=== PATIENT | male | born 1965 | race African-American/Black ===

== ENCOUNTER → 2016-12-07 | Outpatient (CLI) | payer OTHER ==
[~2016-12-07] MED LIST: AMBIEN 10MG10 MG PO; CATAPRES 0.1MG0.1 MG PO; CODEINE/GUAIFE120 M2 PO; COLACE 100100 MG/CAP PO; CYMBALTA 30MG30 MG PO; CYMBALTA 60MG60 MG PO; FOLIC ACID 11 MG/TA1 PO; INVEGA6 MG PO; LEVAQUIN 750MG750 M1 PO; METHOTREXA2.5 MG/TAB PO; MIRALAX PA17 GM/Dose PO; PREDNISONE10 MG PO; PREDNISONE20 MG PO; SYNTHROID0.05 MG/TA PO
== END ==
LOC: COL.PUL 08:00
DX: Z02.71 Encounter for disability determination (principal)

== ENCOUNTER → 2019-06-02 | Outpatient (CLI) | payer MEDICARE ==
[2019-06-02 15:04] LABS: BASO % 0.2 % (0.0-2.0); EOS % 0.5 % (0-4.0); GRAN % 80.7 % (42.2-75.2); HEMATOCRIT 46.1 % (42.0-52.0); HEMOGLOBIN 15.6 g/dl (13.5-18.0); LYMPH # 0.8 (1.2-3.4); MEAN CELL VOLUME 96 fl (80.0-100.0); MEAN CORPUSCULAR HEMOGLOBIN 32 pg (27.0-31.0); MEAN CORPUSCULAR HGB CONC 34 g/dl (33.0-37.0); MEAN PLATELET VOLUME 9.1 fl (7.4-10.4); MONO # 0.8 (0.1-0.6); PLATELET COUNT 215 K/mm3 (130-400); RED BLOOD COUNT 4.81 M/mm3 (4.20-5.60); REDCELL DISTRIBUTION WIDTH-CV 12.3 % (11.5-14.5)
[2019-06-02 15:08] LABS: ALBUMIN 4.4 gm/dL (3.5-5.0); BILIRUBIN,TOTAL 0.6 mg/dL (0.0-1.0); CALCIUM 9.3 mg/dL (8.4-10.2); CREATININE, serum 1.64 (0.66-1.25); POTASSIUM 4.4 mmol/L (3.4-5.0); TOTAL PROTEIN 7.4 gm/dL (6.4-8.2)
== END ==
LOC: COL.LAB 14:19
PROVIDERS: Internal Medicine
DX: D86.9 Sarcoidosis, unspecified (principal); Z79.899 Other long term (current) drug therapy

== ENCOUNTER → 2019-10-08 | Outpatient (CLI) | payer MEDICARE, MEDICAID ==
[~2019-10-08] MED LIST changes: +00186-0370-20 IH; +ALDACTONE 25MG25 M1 PO; +ATACAND 16M16 MG/TAB PO; +CELLCEPT 5500 MG/TAB PO; +DESYREL DIVIDO150 M1 PO; +INCRUSE EL62.5 MCG/A IH; +K-DUR 10 MEQ T10 MEQ PO; +LASIX 40MG TABL40 MG PO; +LATUDA20 MG PO; +LATUDA60 MG PO; +LATUDA80 MG PO; +LIPITOR 40MG TA40 MG PO; +LIPITOR20 MG PO; +PROAIR HFA0.09 MG/AC IH; +RT ADVAIR 528 DISKUS IH; +TESSALON PERLE200 MG PO; +VENTOLIN0.09 MG IH; +VITAMIN D 400400 IU PO; +VITAMIN D250 MCG PO; +ZITHROMAX 250M250 MG PO; +ZITHROMAX Z PA250 MG PO
== END ==
LOC: COL.RAD 07:39
DX: R10.9 Unspecified abdominal pain (principal); R11.0 Nausea; R14.0 Abdominal distension (gaseous); R14.2 Eructation; R68.81 Early satiety; R07.9 Chest pain, unspecified
CPT/HCPCS: A9541